=== PATIENT | female | born 1995 | race African-American/Black ===

== ENCOUNTER 2020-08-29 03:18 | Inpatient (IN) ==
[2020-08-29] MEDS ORDERED: BUTORPHANOL 2 MG/ML VIAL IV PRN (03:27)
[2020-08-29] MEDS ORDERED: ONDANSETRON 4 MG/2 ML VIAL IV PRN (03:27)
[2020-08-29] MEDS ORDERED: LACTATED RINGERS 1,000 ML IV ONE ×2 (03:27→09:09)
[2020-08-29] MEDS ORDERED: LACTATED RINGERS 1,000 ML IV SCH (03:30)
[2020-08-29] MEDS ORDERED: OXYTOCIN/LR 20 UNIT/1,000 ML BAG IV SCH (03:30)
[2020-08-29 03:56] LABS: Basophils % 0.2 % (0.0-0.8); Eosinophils # 0.1 10*3/uL (0.0-0.87); Hematocrit 38.2 VOL% (35.7-47.0); Immature Granulocytes % 0.4 %; Immature Granulocytes Absolute 0.04 #; Lymphocytes % 27.4 % (21.3-54.2); Mean Corpuscular HGB Conc 31.4 GM/DL (32-36); Mean Corpuscular Volume 88.8 FL (87-102); Platelet Count 251 T/CUMM (130-400); Red Cell Distribution Width 14.6 % (9.3-17.3); White Blood Count 11.1 T/CUMM (4-12)
[2020-08-29] MEDS ORDERED: AMPICILLIN INJ 2,000 MG in SODIUM CHLORIDE 0.9% 100 ML IV ONE (04:00)
[2020-08-29 04:09] LABS: Alanine Aminotransferase 10 U/L (13-56); Albumin 2.7 G/DL (3.4-5.0); Alkaline Phosphatase 163 U/L (45-117); Aspartate Amino Transferase 10 U/L (0-37); Bilirubin,Total < 0.39 MG/DL (0.2-1.0); Blood Urea Nitrogen 11 MG/DL (7-18); Calcium 9.5 MG/DL (8.5-10.1); Carbon Dioxide 22 MMOL/L (21-32); Estimated Glom Filtration Rate 174 ML/MIN; Glucose 77 MG/DL (74-106); Osmolality,Calculated 267.1 MOS/KG (273-304); Potassium 3.8 MMOL/L (3.5-5.1); Sodium 135 MMOL/L (136-145); Total Protein 6.9 G/DL (6.4-8.2)
[2020-08-29 04:13] LABS: Hypochromasia 1+
[2020-08-29 04:14] LABS: Microcytosis 1+
[2020-08-29 04:15] LABS: Platelet Estimate Normal
[2020-08-29 04:26] LABS: Bilirubin,Urine Negative (Negative); Blood, Urine Negative (Negative); Glucose,Urine (UA) Negative (Negative); Ketones,Urine Negative (Negative); Mucus,Urine Occasional /LPF (Occasional); Nitrite,Urine Negative (Negative); Protein,Urine Negative; RBC,Urine 2 /HPF (0-4); Squamous Epithelial Cell,Urine Occasional /HPF (0-10); Urine Appearance CLEAR (Clear); Urine Color Yellow (Yellow); Urine Specific Gravity 1.013 (1.001-1.035); Urine Urobilinogen < 2.0 EU/DL (0.2-1.0)
[2020-08-29] MEDS ORDERED: AMPICILLIN INJ 1,000 MG in SODIUM CHLORIDE 0.9% 100 ML IV SCH (08:00)
[2020-08-29] MEDS ORDERED: diphenhydrAMINE 50 MG/1 ML VIAL IV PRN ×2 (09:09)
[2020-08-29] MEDS ORDERED: FAMOTIDINE 20 MG/2 ML VIAL IV ONE (09:09)
[2020-08-29] MEDS ORDERED: CITRIC ACID/SODIUM CITRATE 30 ML UDCUP PO ONE (09:09)
[2020-08-29] MEDS ORDERED: NALOXONE 0.4 MG/ML VIAL IV PRN (09:09)
[2020-08-29] MEDS ORDERED: ePHEDrine 50 MG/ML VIAL IV PRN (09:09)
[2020-08-29] MEDS ORDERED: ePHEDrine 50 MG/ML VIAL ONE (09:16)
[2020-08-29] MEDS ORDERED: fentaNYL 2 MCG/ROPIV 0.2% EPID 100 ML EPIDURAL ONE (09:17)
[2020-08-29] MEDS ORDERED: fentaNYL 2 MCG/ROPIV 0.2% EPID 100 ML EPIDURAL SCH (09:30)
[2020-08-29] MEDS ORDERED: CARBOPROST TROMETHAMINE 250 MCG/ML AMP IM ONE (11:02)
[2020-08-29] MEDS ORDERED: miSOPROStoL 200 MCG TABLET ONE (11:02)
[2020-08-29] MEDS ORDERED: TRANEXAMIC ACID 1,000 MG/10 ML VIAL ONE (11:02)
[2020-08-29] MEDS ORDERED: OXYTOCIN/LR 20 UNIT/1,000 ML BAG IV ONE ×2 (11:02→11:31)
[2020-08-29] MEDS ORDERED: METHYLERGONOVINE 0.2 MG/1 ML AMP ONE (11:02)
[2020-08-29] MEDS ORDERED: SODIUM CHLORIDE 0.9% 0 ML IV ONE (11:03)
[2020-08-29 11:08] LABS: Bilirubin,Urine Negative (Negative); Blood, Urine Negative (Negative); Glucose,Urine (UA) Negative (Negative); Ketones,Urine 5 mg/dL (Negative); Mucus,Urine Occasional /LPF (Occasional); Nitrite,Urine Negative (Negative); Protein,Urine Negative; RBC,Urine <1 /HPF (0-4); Squamous Epithelial Cell,Urine Occasional /HPF (0-10); Urine Appearance CLEAR (Clear); Urine Color Straw (Yellow); Urine Urobilinogen < 2.0 EU/DL (0.2-1.0)
[2020-08-29] MEDS ORDERED: RHO(D) IMMUNE GLOBULIN 300 MCG SYRINGE IM ONE (11:31)
[2020-08-29] MEDS ORDERED: BENZOCAINE 20%/MENTHOL 0.5% SPRAY 56 GM CAN TOP PRN (11:31)
[2020-08-29] MEDS ORDERED: LANOLIN 50% CREAM 0.3 OZ TUBE TOP PRN (11:31)
[2020-08-29] MEDS ORDERED: oxyCODONE/ACETAMINOPHEN 5-325 MG TABLET PO PRN (11:31)
[2020-08-29] MEDS ORDERED: HYDROCORTISONE 2.5% RECTAL CREAM 30 GM TUBE TOP PRN (11:31)
[2020-08-29] MEDS ORDERED: BISACODYL 10 MG SUPP RECTAL PRN (11:31)
[2020-08-29] MEDS ORDERED: ACETAMINOPHEN 325 MG TABLET PO PRN (11:31)
[2020-08-29] MEDS ORDERED: DIPH/TET/ACEL PERT BOOSTER VACCINE 0.5 ML VIAL IM ONE (11:31)
[2020-08-29] MEDS ORDERED: WITCH HAZEL PADS 100/JAR TOP PRN (11:31)
[2020-08-29] MEDS ORDERED: MEASLES/MUMPS/RUBELLA VACCINE 0.5 ML VIAL SUBCUT ONE (11:31)
[2020-08-29 11:35] LABS: Cord Venous Blood HCO3 22.6 MMOL/L; Cord Venous Blood PCO2 44.6 MMHG
[2020-08-29] MEDS ORDERED: SUMAtriptan 25 MG TABLET PO SCH (12:00)
[2020-08-29] MEDS: BUTALBITAL/ACETAMIN/CAFFEINE 50-325-40 MG TABLET PO SCH ×4 (12:41→23:15)
[2020-08-29] MEDS: DOCUSATE SODIUM 100 MG CAPSULE PO SCH (23:15)
[2020-08-30] MEDS: IBUPROFEN 800 MG TABLET PO PRN ×3 (01:38→22:50)
[2020-08-30 01:50] LABS: Barbiturates Screen,Urine Negative (Negative); Benzodiazepines Screen,Urine Negative (Negative); Cannabinoid Screen,Urine Positive (Negative); Opiate Screen,Urine Negative (Negative); Phencyclidine Screen,Urine Negative (Negative)
[2020-08-30] MEDS: SUMAtriptan 25 MG TABLET PO SCH ×3 (01:50→08:50)
[2020-08-30] MEDS: BUTALBITAL/ACETAMIN/CAFFEINE 50-325-40 MG TABLET PO SCH (05:05)
[2020-08-30 06:44] LABS: Basophils % 0.2 % (0.0-0.8); Eosinophils # 0.1 10*3/uL (0.0-0.87); Eosinophils % 1.4 % (0.00-10.9); Hematocrit 33.8 VOL% (35.7-47.0); Hemoglobin 10.6 GM/DL (12.0-16.0); Immature Granulocytes % 0.2 %; Immature Granulocytes Absolute 0.02 #; Lymphocytes # 2.5 10*3/uL (1.4-4.0); Lymphocytes % 29.4 % (21.3-54.2); Mean Corpuscular HGB Conc 31.4 GM/DL (32-36); Mean Corpuscular Volume 89.7 FL (87-102); Mean Platelet Volume 12.4 FL (9.6-12.0); Monocytes % 7.7 % (1.7-12.7); Neutrophils % 61.1 % (38.7-73.9); Platelet Count 187 T/CUMM (130-400); Red Blood Count 3.77 MC/CUMM (3.8-5.5); Red Cell Distribution Width 14.7 % (9.3-17.3); White Blood Count 8.6 T/CUMM (4-12)
[2020-08-30] MEDS: DOCUSATE SODIUM 100 MG CAPSULE PO SCH ×2 (08:51→20:54)
[2020-08-30] MEDS ORDERED: MAGNESIUM HYDROXIDE SUSP 30 ML UDCUP PO PRN (20:10)
[2020-08-30] MEDS: oxyCODONE/ACETAMINOPHEN 5-325 MG TABLET PO PRN (22:50)
[2020-08-31] MEDS: oxyCODONE/ACETAMINOPHEN 5-325 MG TABLET PO PRN (05:03)
[2020-08-31] MEDS: IBUPROFEN 800 MG TABLET PO PRN (05:03)
[2020-08-31 08:27] VITALS: BP 135/77
[2020-08-31] MEDS: DOCUSATE SODIUM 100 MG CAPSULE PO SCH (11:43)
== END 2020-08-31 13:06 | disposition home or self-care (01) | DRG 560 ==
LOC: N.LD 03:18 → N.OB 14:06
PROVIDERS: ADMIT Obstetrics & Gynecology; ATTEND Obstetrics & Gynecology

== ENCOUNTER 2021-10-28 19:50 | Inpatient (IN) ==
[2021-10-28] MEDS ORDERED: miSOPROStoL 200 MCG TABLET RECTAL PRN (20:01)
[2021-10-28] MEDS ORDERED: TRANEXAMIC ACID 1,000 MG in SODIUM CHLORIDE 0.9% 100 ML IV PRN (20:01)
[2021-10-28] MEDS ORDERED: CARBOPROST TROMETHAMINE 250 MCG/ML AMP IM PRN (20:01)
[2021-10-28] MEDS ORDERED: ONDANSETRON 4 MG/2 ML VIAL IV PRN ×2 (20:01→20:48)
[2021-10-28] MEDS ORDERED: MEPERIDINE 50 MG/1 ML VIAL IV PRN (20:01)
[2021-10-28] MEDS ORDERED: METHYLERGONOVINE 0.2 MG/1 ML AMP IM PRN (20:01)
[2021-10-28] MEDS ORDERED: OXYTOCIN/LR 30 UNIT/1,000 ML BAG IV ONE (20:04)
[2021-10-28 20:29] LABS: Basophils % 0.2 % (0.0-0.8); Eosinophils # 0.1 10*3/uL (0.0-0.87); Eosinophils % 1.1 % (0.00-10.9); Hematocrit 40.1 VOL% (35.7-47.0); Hemoglobin 12.8 GM/DL (12.0-16.0); Immature Granulocytes % 0.4 %; Immature Granulocytes Absolute 0.05 #; Lymphocytes # 3.8 10*3/uL (1.4-4.0); Lymphocytes % 28.3 % (21.3-54.2); Mean Corpuscular HGB Conc 31.9 GM/DL (32-36); Mean Corpuscular Volume 86.2 FL (87-102); Mean Platelet Volume 12.8 FL (9.6-12.0); Monocytes % 7.4 % (1.7-12.7); Neutrophils % 62.6 % (38.7-73.9); Platelet Count 225 T/CUMM (130-400); Red Blood Count 4.65 MC/CUMM (3.8-5.5); Red Cell Distribution Width 14.3 % (9.3-17.3); White Blood Count 13.3 T/CUMM (4-12)
[2021-10-28] MEDS ORDERED: LACTATED RINGERS 1,000 ML IV SCH (20:30)
[2021-10-28 20:47] LABS: Alanine Aminotransferase 13 U/L (13-56); Albumin 2.7 G/DL (3.4-5.0); Alkaline Phosphatase 113 U/L (45-117); Aspartate Amino Transferase 12 U/L (0-37); Bilirubin,Total < 0.39 MG/DL (0.20-1.00); Blood Urea Nitrogen 9 MG/DL (7-18); Calcium 10.3 MG/DL (8.5-10.1); Carbon Dioxide 22 MMOL/L (21-32); Chloride 106 MMOL/L (98-107); Glucose 90 MG/DL (74-106); Osmolality,Calculated 268.1 MOS/KG (273-304); Potassium 4.1 MMOL/L (3.5-5.1); Sodium 135 MMOL/L (136-145); Total Protein 7.3 G/DL (6.4-8.2)
[2021-10-28] MEDS ORDERED: oxyCODONE/ACETAMINOPHEN 5-325 MG TABLET PO PRN (20:48)
[2021-10-28] MEDS ORDERED: LANOLIN 50% CREAM 0.3 OZ TUBE TOP PRN (20:48)
[2021-10-28] MEDS ORDERED: BISACODYL 10 MG SUPP RECTAL PRN (20:48)
[2021-10-28] MEDS ORDERED: ACETAMINOPHEN 325 MG TABLET PO PRN (20:48)
[2021-10-28] MEDS ORDERED: RHO(D) IMMUNE GLOBULIN 300 MCG SYRINGE IM ONE (20:48)
[2021-10-28] MEDS ORDERED: HYDROCORTISONE 2.5% RECTAL CREAM 30 GM TUBE TOP PRN (20:48)
[2021-10-28] MEDS ORDERED: DIPH/TET/ACEL PERT BOOSTER VACCINE 0.5 ML VIAL IM ONE (20:48)
[2021-10-28] MEDS ORDERED: MEASLES/MUMPS/RUBELLA VACCINE 0.5 ML VIAL SUBCUT ONE (20:48)
[2021-10-28] MEDS ORDERED: BENZOCAINE 20%/MENTHOL 0.5% SPRAY 56 GM CAN TOP PRN (20:48)
[2021-10-28] MEDS ORDERED: WITCH HAZEL PADS 100/JAR TOP PRN (20:48)
[2021-10-28] MEDS ORDERED: OXYTOCIN/LR 20 UNIT/1,000 ML BAG IV ONE (20:48)
[2021-10-28 20:56] LABS: Eosinophils 1 % (0-10); Lymphocytes 27 % (20-55); Platelet Estimate Normal; Total Cells Counted 100
[2021-10-28] MEDS: IBUPROFEN 800 MG TABLET PO PRN (23:25)
[2021-10-29] MEDS: ALUMINUM/MAGNES/SIMETH MAX STR 30 ML UDCUP PO PRN ×2 (00:22→20:30)
[2021-10-29] MEDS: oxyCODONE/ACETAMINOPHEN 5-325 MG TABLET PO PRN ×3 (05:08→18:18)
[2021-10-29] MEDS: IBUPROFEN 800 MG TABLET PO PRN ×3 (05:08→18:20)
[2021-10-29 05:21] LABS: Basophils % 0.2 % (0.0-0.8); Eosinophils % 0.3 % (0.00-10.9); Hematocrit 37.6 VOL% (35.7-47.0); Hemoglobin 12.1 GM/DL (12.0-16.0); Immature Granulocytes % 0.3 %; Immature Granulocytes Absolute 0.04 #; Lymphocytes # 2.1 10*3/uL (1.4-4.0); Lymphocytes % 16.2 % (21.3-54.2); Mean Corpuscular HGB Conc 32.2 GM/DL (32-36); Mean Corpuscular Volume 88.3 FL (87-102); Monocytes # 0.8 10*3/uL (0.11-0.8); Monocytes % 5.9 % (1.7-12.7); Neutrophils % 77.1 % (38.7-73.9); Platelet Count 199 T/CUMM (130-400); Red Blood Count 4.26 MC/CUMM (3.8-5.5); Red Cell Distribution Width 14.2 % (9.3-17.3); White Blood Count 12.9 T/CUMM (4-12)
[2021-10-29] MEDS: DOCUSATE SODIUM 100 MG CAPSULE PO SCH ×2 (08:27→20:30)
[2021-10-29] MEDS ORDERED: ONDANSETRON 4 MG TABLET PO PRN (14:51)
[2021-10-30] MEDS: IBUPROFEN 800 MG TABLET PO PRN (01:16)
[2021-10-30] MEDS: oxyCODONE/ACETAMINOPHEN 5-325 MG TABLET PO PRN (01:16)
[2021-10-30] MEDS: ALUMINUM/MAGNES/SIMETH MAX STR 30 ML UDCUP PO PRN (02:07)
[2021-10-30] MEDS ORDERED: MULTIVITAMIN (PRENATAL) TABLET PO SCH (09:00)
[2021-10-30] MEDS ORDERED: MAGNESIUM HYDROXIDE SUSP 30 ML UDCUP PO PRN (09:08)
[2021-10-30] MEDS: DOCUSATE SODIUM 100 MG CAPSULE PO SCH (09:30)
[2021-10-30 16:49] VITALS: BP 127/70
== END 2021-10-30 14:55 | disposition home or self-care (01) | DRG 560 ==
LOC: N.LDOUT 19:50 → N.LD 19:53 → N.OB 10-29 00:05
PROVIDERS: ADMIT Obstetrics & Gynecology; ATTEND Obstetrics & Gynecology